=== PATIENT | female | born 1960 | race Asian ===

== ENCOUNTER 2017-02-04 08:19 | Day surgery (SDC) | payer OTHER ==
[2017-02-02 10:24] LABS: HEMATOCRIT 39.6 % (34.6-47.8); HEMOGLOBIN 13.6 g/dL (11.7-16.4); WHITE BLOOD COUNT 4.7 x10^3/uL (3.4-10)
[~2017-02-04] VITALS: Ht 162.6 cm; Wt 51.1 kg
[~2017-02-04 08:19] MED LIST: MULT-658 PO
[2017-02-04 08:41] VITALS: BP 112/74
[2017-02-04] MEDS ORDERED: LACTATED RINGERS 1,000 ML IV SCH (08:43)
[2017-02-04] MEDS ORDERED: MIDAZOLAM 1 MG/ML, 2ML ONE (09:23)
[2017-02-04] MEDS ORDERED: FENTANYL PF 100 MCG/2ML ONE (09:23)
[2017-02-04] MEDS ORDERED: SILVER NITRATE STICK TP ONE (09:52)
[2017-02-04] MEDS ORDERED: PROPOFOL 10 MG/ML, 20ML ONE (10:04)
[2017-02-04] MEDS ORDERED: ONDANSETRON 2MG/ML, 2ML ONE (10:04)
[2017-02-04] MEDS ORDERED: SUCCINYLCHOLINE 20 MG/ML, 10ML ONE (10:04)
[2017-02-04] MEDS ORDERED: CEFAZOLIN 1,000 MG ONE (10:04)
[2017-02-04] MEDS ORDERED: ACETAMINOPHEN 325 MG TABLET ONE (10:51)
[2017-02-04] MEDS ORDERED: ACETAMINOPHEN 650 MG/20.3 ML UDC ONE (10:51)
[2017-02-04] MEDS ORDERED: ACETAMINOPHEN 325 MG TABLET PO PRN ×2 (11:00)
[2017-02-04] MEDS ORDERED: HYDROcodone/APAP 7.5-325MG/15ML UDC PO PRN (11:00)
[2017-02-04] MEDS ORDERED: ONDANSETRON 2MG/ML, 2ML IVPush PRN (11:00)
[2017-02-04] MEDS ORDERED: HYDROmorphone 1 MG/ML, 1ML IV PRN (11:00)
[2017-02-04] MEDS ORDERED: FENTANYL PF 100 MCG/2ML IV PRN (11:00)
== END 2017-02-04 12:25 ==
LOC: OUT 08:19
PROVIDERS: ATTEND Obstetrics & Gynecology
DX: N88.8 Other specified noninflammatory disorders of cervix uteri (principal); R87.619 Unspecified abnormal cytological findings in specimens from cervix uteri
CPT/HCPCS: 36415; 58558; 85025; 88305; 93005; J0330; J0690; J2250; J2405; J2704; J3010; J7120